=== PATIENT | female | born 1990 | race Caucasian/White ===

== ENCOUNTER 2017-01-23 13:15 | Inpatient (IN) ==
[2017-01-23] MEDS ORDERED: ONDANSETRON 4 MG/2 ML VIAL IV PRN (13:46)
[2017-01-23] MEDS ORDERED: LACTATED RINGERS 1,000 ML IV SCH ×2 (14:00→14:30)
[2017-01-23 14:03] LABS: Basophils % 0.3 % (0.0-0.8); Eosinophils % 0.2 % (0.00-10.9); Hematocrit 26.9 VOL% (35.7-47.0); Hemoglobin 9.1 GM/DL (12.0-16.0); Immature Granulocytes % 0.7 %; Immature Granulocytes Absolute 0.08 #; Lymphocytes # 1.6 10*3/uL (1.4-4.0); Lymphocytes % 13.7 % (21.3-54.2); Mean Corpuscular HGB Conc 33.8 GM/DL (32-36); Mean Corpuscular Hemoglobin 30 PG (27-34); Mean Corpuscular Volume 88.2 FL (87-102); Mean Platelet Volume 9.8 FL (9.6-12.0); Monocytes # 0.6 10*3/uL (0.11-0.8); Neutrophils # 9.3 10*3/uL (1.4-7.4); Neutrophils % 80.1 % (38.7-73.9); Platelet Count 339 T/CUMM (130-400); Red Blood Count 3.05 MC/CUMM (3.8-5.5); Red Cell Distribution Width 12.9 % (9.3-17.3); White Blood Count 11.6 T/CUMM (4-12)
[2017-01-23] MEDS ORDERED: LACTATED RINGERS 1,000 ML IV ONE (14:08)
[2017-01-23] MEDS ORDERED: LACTATED RINGERS 250 ML IV PRN (14:08)
[2017-01-23] MEDS ORDERED: CITRIC ACID/SODIUM CITRATE 30 ML UDCUP PO ONE (14:08)
[2017-01-23] MEDS ORDERED: fentaNYL 2 MCG/ROPIV 0.2% EPID 150 ML EPIDURAL SCH (14:08)
[2017-01-23] MEDS ORDERED: FAMOTIDINE 20 MG/2 ML VIAL IV ONE (14:08)
[2017-01-23] MEDS ORDERED: hydrOXYzine HCL 25 MG/1 ML VIAL IM PRN (14:08)
[2017-01-23] MEDS ORDERED: diphenhydrAMINE 50 MG/1 ML VIAL IV PRN ×2 (14:08)
[2017-01-23] MEDS ORDERED: ePHEDrine 50 MG/ML AMP IV PRN (14:08)
[2017-01-23] MEDS ORDERED: PENICILLIN G POTASSIUM INJ 6,000,000 UNIT in SODIUM CHLORIDE 0.9% 100 ML IV ONE (14:30)
[2017-01-23 14:42] LABS: Alanine Aminotransferase 14 U/L (13-56); Albumin 2.9 G/DL (3.4-5.0); Alkaline Phosphatase 224 U/L (45-117); Aspartate Amino Transferase 24 U/L (0-37); Bilirubin,Total < 0.39 MG/DL (0.2-1.0); Blood Urea Nitrogen 7 MG/DL (7-18); Calcium 8.7 MG/DL (8.5-10.1); Glucose 69 MG/DL (74-106); Osmolality,Calculated 270.7 MOS/KG (273-304); Potassium 3.9 MMOL/L (3.5-5.1); Sodium 138 MMOL/L (136-145)
[2017-01-23] MEDS: BUTORPHANOL 2 MG/ML VIAL IV PRN ×2 (15:20→18:23)
[2017-01-23] MEDS ORDERED: OXYTOCIN/LR 20 UNIT/1,000 ML BAG IV SCH (16:00)
--- NOTE | 2017-01-23 16:28 | OB/GYN History & Physical ---
History of Present Illness Chief complaint: labor History of present illness: Ms. Rojo is a 27 year old female at 36 5/7 weeks who presented with spontaneous rupture and 5 cm. No issues with the . Current daily smoker. No other issues with this . H/o term without complication Attempted epidural x 2 without success. Now has received iv pain medication. R/B/A to delivery reviewed. Pt verbalized understanding and is willing to proceed. Home Medications Medication Instructions Recorded Confirmed Type Multivitamin () [ 1 mg PO DAILY 08/29/16 01/23/17 History Vitamin] Ondansetron Tab [Zofran Tab] 1 mg PO ONCE PRN 08/29/16 01/23/17 History Allergies Allergy/AdvReac Type Severity Reaction Status Date / Time No Known Allergies Allergy Unverified 06/27/16 21:09 Medical,Surgical,& Family Hx - Medical History Cardio: History of: Hypertension Reproductive: No history of: Ectopic , Complication - Surgical History Abdominal Surgeries: Patient denies: Abdominal Surgery Reproductive Surgeries: Patient denies;: Section - Social History Smoking Status: Current every day smoker Frequency of Alcohol Use: None Type of Drug Use: None 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 Contractions q 3-6 mins. AROM of forebag, /-1), other Assessment and Plan (1) 36 weeks gestation of Status: Acute Current Visit: Yes (2) PROM (premature rupture of membranes) Status: Acute Assessment and plan: Anticipate delivery Current Visit: Yes Results - Labs CBC & BMP: 01/23/17 13:55 01/23/17 13:55
[2017-01-23] MEDS ORDERED: PENICILLIN G POTASSIUM INJ 4,000,000 UNIT in SODIUM CHLORIDE 0.9% 100 ML IV SCH (18:30)
--- NOTE | 2017-01-23 18:41 | Event Note ---
DELIVERY NOTE of male over an intact perineum. Pt presented this afternoon in early labor 5 cm with PROM. No epidural. IV pain analgesia. Pushed ~ 15 minutes. 6 lbs 15 oz. APGARS OF 8/9. Spontaneous delivery of intact placenta. EBL 300 cc. NICU present for delivery. Mom and baby doing well.
[2017-01-23] MEDS ORDERED: DIPH/TET/ACEL PERT BOOSTER VACCINE 0.5 ML VIAL IM ONE (20:14)
[2017-01-23] MEDS ORDERED: ACETAMINOPHEN 325 MG TABLET PO PRN (20:14)
[2017-01-23] MEDS ORDERED: MEASLES/MUMPS/RUBELLA VACCINE 0.5 ML VIAL SUBCUT ONE (20:14)
[2017-01-23] MEDS ORDERED: LANOLIN 50% CREAM 0.3 OZ TUBE TOP PRN (20:14)
[2017-01-23] MEDS ORDERED: WITCH HAZEL PADS 100/JAR TOP PRN (20:14)
[2017-01-23] MEDS ORDERED: HYDROCORTISONE 2.5% RECTAL CREAM 30 GM TUBE TOP PRN (20:14)
[2017-01-23] MEDS ORDERED: RHO(D) IMMUNE GLOBULIN 300 MCG SYRINGE IM ONE (20:14)
[2017-01-23] MEDS ORDERED: BISACODYL 10 MG SUPP RECTAL PRN (20:14)
[2017-01-23] MEDS ORDERED: BENZOCAINE 20%/MENTHOL 0.5% SPRAY 56 GM CAN TOP PRN (20:14)
[2017-01-23] MEDS: IBUPROFEN 800 MG TABLET PO PRN (20:26)
[2017-01-24 00:01] LABS: Barbiturates Screen,Urine Negative (Negative); Benzodiazepines Screen,Urine Negative (Negative); Cannabinoid Screen,Urine Negative (Negative); Opiate Screen,Urine Positive (Negative); Phencyclidine Screen,Urine Negative (Negative)
[2017-01-24 06:09] LABS: Basophils % 0.2 % (0.0-0.8); Eosinophils # 0.1 10*3/uL (0.0-0.87); Eosinophils % 0.6 % (0.00-10.9); Hematocrit 23.8 VOL% (35.7-47.0); Hemoglobin 8.1 GM/DL (12.0-16.0); Immature Granulocytes % 0.6 %; Immature Granulocytes Absolute 0.08 #; Lymphocytes # 2.3 10*3/uL (1.4-4.0); Lymphocytes % 16.1 % (21.3-54.2); Mean Corpuscular Hemoglobin 29 PG (27-34); Mean Corpuscular Volume 86.2 FL (87-102); Mean Platelet Volume 9.7 FL (9.6-12.0); Monocytes # 1.2 10*3/uL (0.11-0.8); Monocytes % 8.3 % (1.7-12.7); Neutrophils # 10.8 10*3/uL (1.4-7.4); Neutrophils % 74.2 % (38.7-73.9); Platelet Count 281 T/CUMM (130-400); Red Blood Count 2.76 MC/CUMM (3.8-5.5); Red Cell Distribution Width 12.9 % (9.3-17.3); White Blood Count 14.5 T/CUMM (4-12)
--- NOTE | 2017-01-24 07:58 | OB/GYN Progress Note ---
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: Subj Interval history: Pt without complaints this morning Exam OCEAN EXPORT ACCOUNT MANAGER - Constitutional Vitals: Vital Signs Temp Pulse Resp BP Pulse Ox 01/24/17 05:00 18 01/24/17 04:00 98.7 F 97 H 18 134/78 98 01/24/17 03:00 18 01/24/17 00:00 98.2 F 97 H 18 128/76 96 01/23/17 23:00 96 H 18 128/76 96 01/23/17 22:00 107 H 18 130/70 98 01/23/17 21:00 103 H 18 138/71 99 01/23/17 20:30 99 H 18 145/79 99 01/23/17 20:00 98.9 F 87 18 143/81 99 01/23/17 19:58 98.6 F 91 H 17 143/70 General appearance: normal weight, no acute distress - Head Head exam: Present: normal inspection, normocephalic - Eye Eye exam: Present: EOMI - GI/Abdominal GI/Abdominal exam: Present: soft. Absent: tenderness Results - Labs CBC & BMP: 01/24/17 05:59 01/23/17 13:55
[2017-01-24] MEDS ORDERED: FERROUS SULFATE ER 140 MG TABLET PO SCH (09:00)
[2017-01-24] MEDS: DOCUSATE SODIUM 100 MG CAPSULE PO SCH ×3 (09:58→22:50)
[2017-01-24] MEDS: IBUPROFEN 800 MG TABLET PO PRN (09:58)
[2017-01-24] MEDS ORDERED: INFLUENZA VIRUS VACCINE 0.5 ML SYRINGE IM ONE (16:21)
[2017-01-25] MEDS: IBUPROFEN 800 MG TABLET PO PRN (00:07)
[2017-01-25 07:56] VITALS: BP 139/79
[2017-01-25] MEDS: DOCUSATE SODIUM 100 MG CAPSULE PO SCH (09:08)
[2017-01-25] MEDS ORDERED: FERROUS SULFATE ER 140 MG TABLET PO ONE (09:30)
--- NOTE | 2017-01-25 10:17 | Discharge Summary ---
Hospital Course - Hospital Course Hospital Course: This patient presented to the labor department with spontaneous rupture of membranes at 36 weeks gestation. She delivered a viable male with no complications. The is in the NICU at present due to prematurity. The mom also had a history of taking prescription pain medicines. She stated that she had been prescribed Percocet for back pain but had taken 1 of her 's morphine prior to delivering her infant. Social service was consulted because of this. The patient is stable her bleeding is minimal with no odor. She is concerned about the well-being of her reassurance was offered. Her perineum is intact with no edema. Her fundus is firm and midline. Her vital signs and lab values are stable. She will be discharged to home with prescriptions for pain and a follow-up appointment in our office. Contraception options has been discussed and she is unsure of a method at this time. Specialty Discharge - Follow Up or Referrals Follow up with: Rianna Fajardo MD [Physician] - (Follow-up in 6 weeks.) Discharge Plan - Discharge Data Disposition: Disch To Home/Self Care Condition at Discharge: Stable Discharge Diet: advance to your usual diet, regular diet Activity: resume usual activities as tolerated Hygiene: no restrictions Weight Bearing at Discharge: weight bear as tolerated Driving: no restrictions Contact your physician if you experience:: fever over 101, pain uncontrolled by pain medications - Discharge Medications New Ibuprofen Tab [Motrin Tab] 800 mg PO Q6H PRN #45 tablet PRN Reason: Pain Moderate (4-7) Ferrous Sulfate ER Tab [Slow Fe] 140 mg PO DAILY #30 tablet No Action Ondansetron Tab [Zofran Tab] 1 mg PO ONCE PRN PRN Reason: Reflux Multivitamin () [ Vitamin] 1 mg PO DAILY - Follow Up or Referral - Forms/Instructions Exam - Constitutional Vitals: Period Temp Pulse Resp BP Sys/Mina Pulse Ox Last 24 Hr 97.3 F-98.4 F 63-74 18-20 118-139/63-81 98-100 General appearance: no acute distress - Head Head exam: Present: normal inspection - Respiratory Respiratory exam: Present: clear to auscultation bilaterally - Cardiovascular Cardiovascular exam: Present: regular rate and rhythm - GI/Abdominal GI/Abdominal exam: Present: normal bowel sounds, soft - Extremities Exam Extremities exam: Present: normal inspection - Back Exam Back exam: Present: normal inspection - Neurological Exam Neurological exam: Present: alert, oriented X3 - Psychiatric Psychiatric exam: Present: normal affect, normal mood - Skin Skin exam: Present: normal color, warm DS: Provider Date of admission: 01/23/17 14:00 Primary care physician: Mars Gonzalez Attending physician on admission: Sherita Bates MD Consults: 01/23/17 20:14 Consult to Head Field Hockey Coach [CONS] Routine Consult Head Field Hockey Coach: Breast Feeding Discharging clinician: Anamaria He CNM Expected date of discharge: 01/25/17
== END 2017-01-25 13:30 | disposition home or self-care (01) | DRG 560 ==
LOC: N.LDOUT 13:15 → N.LD 14:00 → N.OB 20:00
PROVIDERS: ADMIT Obstetrics & Gynecology; ATTEND Obstetrics & Gynecology